=== PATIENT | female | born 1925 | race Caucasian/White ===

== ENCOUNTER → 2016-11-25 | Outpatient (CLI) | payer MEDICARE, OTHER ==
[~2016-11-25] MED LIST: ACID CONTROL20 MG PO; ALDACTONE25 MG PO; ASCORBIC ACID500 MG PO; COUMADIN2.5 MG PO; COUMADIN5 MG PO; LASIX80 MG PO; METOPROLOL TART25 MG PO; MULTIVITAMINS1 EAC1 PO; MUPIROCIN22 GM TP; NEURONTIN DPS300 MG PO; OCEAN NASAL MIS45 ML NS; SYNTHROID DP0.075 MG PO; TUMS DPS500 MG PO; TYLENOL PM EX-1 EACH PO; VITAMIN D5000 UNIT PO
== END | disposition home or self-care (01) ==
LOC: RAD.S 14:40
DX: Z12.31 Encounter for screening mammogram for malignant neoplasm of breast (principal)